=== PATIENT | female | born 1965 | race Caucasian/White ===

== ENCOUNTER 2023-06-01 07:14 | Outpatient (RCR) | payer BC, SELFPAY | END 2023-07-04 08:03 | disposition home or self-care (01) | LOC: PT 07:14 | PROVIDERS: PCP Family Medicine; Visit Provider Family Medicine | DX: M25.511 Pain in right shoulder (principal) | CPT/HCPCS: 20561; 97140; 97161 ==

== ENCOUNTER 2025-04-02 09:54 | Outpatient (RCR) | payer BC, SELFPAY | END 2025-04-17 16:40 | disposition home or self-care (01) | LOC: PT 09:54 | PROVIDERS: PCP Family Medicine; Visit Provider Family Medicine | DX: M25.561 Pain in right knee (principal); M25.551 Pain in right hip | CPT/HCPCS: 20560; 97035; 97140; 97161 ==